=== PATIENT | male | born 1980 | race Two or more races ===

== ENCOUNTER 2018-04-28 12:29 | Emergency (ER) | payer OTHER ==
[~2018-04-28] VITALS: Ht 188 cm; Wt 83.5 kg
[2018-04-28 12:38] VITALS: Ht 188 cm; Wt 83.5 kg
[2018-04-28 15:02] VITALS: BP 140/80
== END 2018-04-28 15:02 | disposition home or self-care (01) ==
LOC: ED 12:29
DX: S01.112A Laceration without foreign body of left eyelid and periocular area, initial encounter (principal); S06.0X0A Concussion without loss of consciousness, initial encounter; S13.4XXA Sprain of ligaments of cervical spine, initial encounter; S00.81XA Abrasion of other part of head, initial encounter; Z88.5 Allergy status to narcotic agent; Z87.19 Personal history of other diseases of the digestive system; W01.0XXA Fall on same level from slipping, tripping and stumbling without subsequent striking against object, initial encounter; Y93.89 Activity, other specified; Y92.89 Other specified places as the place of occurrence of the external cause; Y99.8 Other external cause status
CPT/HCPCS: J8597; Q0162